=== PATIENT | male | born 1985 | race Caucasian/White ===

== ENCOUNTER 2017-09-21 11:18 | Emergency (ER) | payer OTHER, BC ==
[~2017-09-21] VITALS: Ht 180.3 cm; Wt 108.9 kg
[2017-09-21] MEDS ORDERED: Norco 10-325 T1 EACH PO (12:20)
[2017-09-21] MEDS ORDERED: CEPH500 PO (12:20)
[2017-09-21] MEDS ORDERED: IBUP800 PO (12:20)
== END 2017-09-21 13:58 | disposition home or self-care (01) ==
LOC: ER 11:18
DX: S66.222A Laceration of extensor muscle, fascia and tendon of left thumb at wrist and hand level, initial encounter (principal); W26.0XXA Contact with knife, initial encounter
CPT/HCPCS: 12004; 36415; 90714; 96361; 96374; 99283; J0690; J7030

== ENCOUNTER 2017-09-30 07:11 | Day surgery (SDC) | payer OTHER, BC ==
[~2017-09-30] VITALS: Ht 180.3 cm; Wt 118.4 kg
[~2017-09-30 07:11] MED LIST: CEPH500 PO; IBUP800 PO; Norco 10-325 T1 EACH PO
== END 2017-09-30 11:18 | disposition home or self-care (01) ==
LOC: ORSCSDS 07:11
PROVIDERS: Orthopaedic Surgery
PROC: 01Q60ZZ Repair Radial Nerve, Open Approach (ICD-10-PCS; principal; 2017-09-30 08:30)
PROC: 0LQ60ZZ Repair Left Lower Arm and Wrist Tendon, Open Approach (ICD-10-PCS; principal; 2017-09-30 08:30)
DX: S66.922A Laceration of unspecified muscle, fascia and tendon at wrist and hand level, left hand, initial encounter (principal); S64.22XA Injury of radial nerve at wrist and hand level of left arm, initial encounter; Z87.891 Personal history of nicotine dependence
CPT/HCPCS: J0461; J0690; J1100; J1885; J2250; J2405; J3010

== ENCOUNTER 2018-09-14 05:56 | Day surgery (SDC) | payer BC ==
[~2018-09-14] VITALS: Ht 177.8 cm; Wt 112.5 kg
--- NOTE | 2018-09-14 06:29 | NUR ---
Pt admitted to [facility]. Agrees with planned surger. Meds. allergies and hx reviewd. Lung sounds clear.
--- NOTE | 2018-09-14 09:00 | NUR ---
PT TO STEPDOWN APPROX 3-4 MINUTES AGO. AWAKE, CONVERSING WITH STAFF. TO BEDSIDE. DRESSING TO LEFT KNEE/JEANNIE WRAP CLEAN DRY AND INTACT. PT STATES PAIN LEVEL 5/10 AT THIS TIME. CMS TO RIGHT FOOT INTACT.
--- NOTE | 2018-09-14 09:15 | NUR ---
PT SIPPING ON PO FLUIDS WITHOUT DIFFICULTY. EATING CRACKERS AT THIS TIME.
--- NOTE | 2018-09-14 09:26 | NUR ---
PT MEDICATED FOR PAIN AT THIS TIME.
--- NOTE | 2018-09-14 09:31 | NUR ---
REVIEWED DISCHARGE INSTRUCTIONS WITH PATIENT AND , BOTH OF WHOM VERBALIZE UNDERSTANDING OF ALL INSTRUCTIONS GIVEN. QUESTIONS ANSWERED, HAND OUT GIVEN.
--- NOTE | 2018-09-14 09:43 | NUR ---
PT STATES KNEE "FEELS BETTER" AFTER MEDICATION ADMINISTRATION. UP TO DRESS WITH ASSISTANCE OF .
--- NOTE | 2018-09-14 09:52 | NUR ---
IV D/C TIP INTACT. PT TOLERATED WELL. D/C HOME VIA WC WITH TO DRIVE HIM. CMS TO LEG UNCHANGED. PAIN IMPROVING. ABLE TO STAND AT EDGE OF BED WITHOUT DIFFICULTY.
== END 2018-09-14 22:43 | disposition home or self-care (01) ==
LOC: ORSCMMR 05:56 → ORD 07:30 → ORSCMMR 10:15 → ORD 10:15 → ORSCMMR 22:43
PROVIDERS: Orthopaedic Surgery
PROC: 0SBD4ZZ Excision of Left Knee Joint, Percutaneous Endoscopic Approach (ICD-10-PCS; principal; 2018-09-14 07:30)
DX: S83.242A Other tear of medial meniscus, current injury, left knee, initial encounter (principal); E66.9 Obesity, unspecified; Z68.35 Body mass index [BMI] 35.0-35.9, adult
CPT/HCPCS: J0171; J0690; J1100; J1885; J2250; J2405; J2704; J3010; J7120